=== PATIENT | male | born 1980 | race Caucasian/White ===

== ENCOUNTER 2019-07-11 12:18 | Emergency (ER) | payer OTHER, SELFPAY ==
[2019-07-11 12:19] VITALS: BP 152/92; PULSE 107; RESP 16; TEMP 36.2; O2SAT 97; BMI 27.3
--- NOTE | 2019-07-11 12:47 | ED.DCSUM_ITS ---
- ER Visit Summary Date of Service: 07/11/19 Chief Complaint: Left thumb injury History of Present Illness: The patient is a 39 M who is right-hand dominant. He smashed his distal left thumb with a log from a tree that he was cutting. Physical Examination: Patient has a laceration, almost a complete amputation of his distal phalanx of his left thumb. Test Results: X-rays pending. Emergency Department Course and Treatment: Tetanus updated. Patient has a penicillin allergy and was treated with clindamycin. I will perform a digital block and replace the dressing. Patient will need evaluation by hand surgery which is not available at this facility. After discussion with the patient, he will be transferred to [facility]. He was accepted by Dr. Lancaster to the ED. Treatment Plan: As above Disposition: Transfer Impression: Left thumb distal phalanx partial amputation This note was generated with [employer] dictation software. It may contain incorrect words, spelling, and punctuation that were not noted in review of the chart prior to signing ED Disposition - Plan for ED Patient: Referrals: NOT,DEFINED [Primary Care Provider] -
--- NOTE | 2019-07-11 12:50 | RAD_ITS ---
STUDY: X-RAY - LEFT HAND REASON FOR EXAM: Male, 39 years old. Trauma TECHNIQUE: 3 view(s) of the hand. COMPARISON: None. FINDINGS: There is a displaced fracture of the distal phalanx of the left with amputation of the associated soft tissues. The remainder of the visualized osseous structures are intact. There is a subcentimeter linear radiodense foreign body noted in the amputated soft tissues. RAD/Hand Min 3 Views IMPRESSION: Displaced fracture of the distal phalanx of the left thumb with amputation of the associated soft tissues. Subcentimeter linear radiodense foreign body noted in the amputated soft tissues. Electronically Signed: Marcos Valerio, at 14:29 EDT Tel , Service support ,
[2019-07-11] MEDS: Diphth,Pertuss(Acell),Tet Vac 0.5 ML Vial IM (13:16)
[2019-07-11 13:33] VITALS: BP 119/78; PULSE 89; RESP 18; O2SAT 99
[2019-07-11 13:51] VITALS: BP 119/78
[2019-07-11 14:00] VITALS: RESP 16
== END 2019-07-11 15:01 | disposition short-term general hospital (02) ==
PROVIDERS: Emergency Provider Emergency Medicine
DX: S68.012A Complete traumatic metacarpophalangeal amputation of left thumb, initial encounter (principal); W23.0XXA Caught, crushed, jammed, or pinched between moving objects, initial encounter; Y93.9 Activity, unspecified; Y92.9 Unspecified place or not applicable; Z72.0 Tobacco use
CPT/HCPCS: 73130; 90715; 96365; 99284; J7030; A4216